=== PATIENT | female | born 1985 | race Caucasian/White ===

== ENCOUNTER 2020-09-07 11:22 | Emergency (ER) | payer MEDICAID ==
[~2020-09-07] VITALS: Ht 149.9 cm; Wt 73.0 kg
[2020-09-07 11:29] VITALS: BP 127/85
== END 2020-09-07 12:32 | disposition home or self-care (01) ==
LOC: ER 11:22
DX: O26.893 Other specified pregnancy related conditions, third trimester (principal); Z3A.39 39 weeks gestation of pregnancy; Z20.822 Contact with and (suspected) exposure to COVID-19; F17.290 Nicotine dependence, other tobacco product, uncomplicated; Z98.890 Other specified postprocedural states
CPT/HCPCS: 87426; 99283

== ENCOUNTER 2020-09-09 07:42 | Inpatient (IN) | payer MEDICAID ==
[~2020-09-09] VITALS: Ht 149.9 cm; Wt 72.6 kg
[2020-09-09] MEDS ORDERED: LACTATED RINGERS 1,000 ML IV SCH (08:15)
[2020-09-09] MEDS ORDERED: DEXT 5%/LR + PITOCIN 20UNITS/L 1,000 ML IV SCH (08:15)
[2020-09-09] MEDS ORDERED: MISOPROSTOL 100MCG TABLET VG SCH (08:15)
[2020-09-09] MEDS ORDERED: METHYLERGONOVINE MALEATE 0.2 MG/ML IM PRN (08:15)
[2020-09-09] MEDS ORDERED: NALOXONE HCL 0.4 MG/ML 1ML VIAL IM PRN (08:15)
[2020-09-09] MEDS ORDERED: CARBOPROST TROMETHAMINE 250 MCG/ML AMPUL IM PRN (08:15)
[2020-09-09] MEDS ORDERED: MISOPROSTOL 100MCG TABLET RC NR (09:15)
[2020-09-09 09:18] LABS: BASOPHILS % 0.5 % (0.0-2.0); EOSINOPHILS % 0.8 % (0.0-5.0); HEMATOCRIT. 31.2 % (36.0-48.0); HEMOGLOBIN. 10.9 g/dL (12.0-16.0); LYMPHOCYTES % 26.1 % (20.0-50.0); MEAN CORPUSCULAR HEMOGLOBIN 33.2 pg (28.0-32.0); MEAN CORPUSCULAR VOLUME 95.4 fL (81.0-99.0); MEAN PLATELET VOLUME 7.1 fl (7.4-10.4); MONOCYTES % 5.9 % (2.0-8.0); NEUTROPHILS % 66.7 % (40.0-76.0); PLATELET 295 x1000/uL (130-400); RED BLOOD CELL COUNT 3.27 mill/uL (4.2-5.4); RED CELL DISTRIBUTION WIDTH 13.8 % (11.6-14.6)
[2020-09-09 09:21] LABS: CLARITY URINE CLEAR (CLEAR); COLOR URINE YELLOW (YELLOW); KETONES URINE NEGATIVE (NEGATIVE); LEUKOCYTE ESTERASE URINE NEGATIVE (NEGATIVE); NITRITE URINE NEGATIVE (NEGATIVE); OCCULT BLOOD URINE NEGATIVE (NEGATIVE); PROTEIN URINE NEGATIVE (NEGATIVE); SPECIFIC GRAVITY URINE 1.009 (1.005-1.030); UROBILINOGEN URINE 0.2 E.U./dL (0.2-1.0)
[2020-09-09 09:28] LABS: INR 0.9; PARTIAL THROMBOPLASTIN TIME 25.5 sec (23.4-31.0); PROTHROMBIN TIME 9.5 sec (9.6-11.0)
[2020-09-09 09:51] LABS: *AMPHETAMINES SCREEN URINE NEGATIVE (NEGATIVE); *BARBITURATES SCREEN URINE NEGATIVE (NEGATIVE); *BENZODIAZEPINES SCREEN URINE NEGATIVE (NEGATIVE); *COCAINE SCREEN URINE NEGATIVE (NEGATIVE); METHADONE URINE SCREEN NEGATIVE (NEGATIVE); OPIATES URINE SCREEN NEGATIVE (NEGATIVE)
[2020-09-09 09:52] LABS: CANNABINOID URINE SCREEN NEGATIVE (NEGATIVE); PHENCYCLIDINE URINE SCREEN NEGATIVE (NEGATIVE)
[2020-09-09] MEDS ORDERED: OXYTOCIN 10 UNITS/ML 1ML ONE (12:48)
[2020-09-09] MEDS ORDERED: CEFAZOLIN SODIUM 1000MG/VIAL ONE (12:48)
[2020-09-09] MEDS ORDERED: MORPHINE SULFATE/PF 1MG/ML 10ML AMP ONE (12:49)
[2020-09-09] MEDS ORDERED: PHENYLEPHRINE HCL 10 MG/ML 1ML (IV VIAL) IV ONE (12:49)
[2020-09-09] MEDS ORDERED: ONDANSETRON HCL 4MG/2ML INJ ONE (12:49)
[2020-09-09] MEDS ORDERED: EPHEDRINE SULFATE 50MG/ML VIAL ONE (12:49)
[2020-09-09] MEDS ORDERED: SUCCINYLCHOLINE CHLORIDE 200MG/10ML IV ONE (12:49)
[2020-09-09 13:02] LABS: HEPATITIS B SURFACE ANTIGEN NEGATIVE
[2020-09-09] MEDS ORDERED: LANOLIN OINT 7GM TUBE TOP PRN (13:30)
[2020-09-09] MEDS ORDERED: IBUPROFEN 400MG TABLET PO PRN (13:30)
[2020-09-09] MEDS ORDERED: DIPHENHYDRAMINE 50MG/ML VIAL IV PRN (13:30)
[2020-09-09] MEDS ORDERED: ONDANSETRON HCL 4MG/2ML INJ IV PRN ×2 (13:30)
[2020-09-09] MEDS ORDERED: HEMORRHOIDAL SUPP PR PRN (13:30)
[2020-09-09] MEDS ORDERED: METOCLOPRAMIDE HCL 10MG/2ML VIAL IV PRN (13:30)
[2020-09-09] MEDS ORDERED: MORPHINE SULFATE 10 MG/ML CPJ IV PRN (13:30)
[2020-09-09] MEDS ORDERED: FENTANYL CITRATE/PF 50MCG/ML 2ML VIAL IV PRN (13:30)
[2020-09-09] MEDS ORDERED: DIPHENHYDRAMINE 25MG CAPSULE PO PRN (13:30)
[2020-09-09] MEDS ORDERED: NALOXONE HCL 0.4 MG/ML 1ML VIAL IV PRN (13:30)
[2020-09-09] MEDS ORDERED: RHO(D) IMMUNE GLOBULIN 300 MCG/SYR IM PRN (13:30)
[2020-09-09] MEDS ORDERED: BISACODYL 10MG SUPP PR PRN (13:30)
[2020-09-09] MEDS: KETOROLAC 30MG/ML VIAL IV SCH (15:55)
[2020-09-09] MEDS: DEXT 5%/LR + PITOCIN 20UNITS/L 1,000 ML IV SCH (15:57)
[2020-09-09 16:30] VITALS: BP 105/53
[2020-09-09 17:00] VITALS: BP 119/56
[2020-09-09 17:56] VITALS: BP 111/52
[2020-09-09 20:00] VITALS: BP 121/73
[2020-09-09] MEDS ORDERED: DOCUSATE SODIUM 100MG CAPSULE PO SCH (21:00)
[2020-09-10] MEDS: DEXT 5%/LR + PITOCIN 20UNITS/L 1,000 ML IV SCH (00:03)
[2020-09-10 00:10] VITALS: BP 100/58
[2020-09-10] MEDS: KETOROLAC 30MG/ML VIAL IV SCH (00:13)
[2020-09-10 07:01] LABS: BASOPHILS % 0.5 % (0.0-2.0); EOSINOPHILS % 0.6 % (0.0-5.0); HEMATOCRIT. 24.6 % (36.0-48.0); HEMOGLOBIN. 8.6 g/dL (12.0-16.0); LYMPHOCYTES % 18.4 % (20.0-50.0); MEAN CORPUSCULAR HEMOGLOBIN 34.3 pg (28.0-32.0); MEAN CORPUSCULAR VOLUME 97.6 fL (81.0-99.0); MONOCYTES % 7.4 % (2.0-8.0); NEUTROPHILS % 73.1 % (40.0-76.0); PLATELET 231 x1000/uL (130-400); RED BLOOD CELL COUNT 2.52 mill/uL (4.2-5.4); RED CELL DISTRIBUTION WIDTH 13.9 % (11.6-14.6)
[2020-09-10 07:30] VITALS: BP 102/65
[2020-09-10] MEDS: IBUPROFEN 800MG TABLET PO PRN ×3 (07:57→21:10)
[2020-09-10] MEDS: PRENATAL VIT/FE FUMARATE/FA TABLET PO SCH (07:57)
[2020-09-10] MEDS: FERROUS SULFATE 325MG TABLET PO SCH (07:57)
[2020-09-10] MEDS: SIMETHICONE 80MG TABLET CHEW PO SCH ×2 (07:58→21:11)
[2020-09-10] MEDS: HYDROCODONE/ACETAMINOPHEN 5/325MG TABLET PO PRN ×2 (12:50→17:12)
[2020-09-10 14:00] VITALS: BP 114/68
[2020-09-10 19:50] VITALS: BP 112/61
[2020-09-10] MEDS: MAGNESIUM/ALUMINUM HYDROXIDE/SIMETHICONE 30ML UDC PO SCH (21:10)
[2020-09-11 04:00] VITALS: BP 111/59
[2020-09-11] MEDS: HYDROCODONE/ACETAMINOPHEN 5/325MG TABLET PO PRN (04:36)
[2020-09-11] MEDS: MAGNESIUM/ALUMINUM HYDROXIDE/SIMETHICONE 30ML UDC PO SCH (07:30)
[2020-09-11] MEDS: FERROUS SULFATE 325MG TABLET PO SCH (07:30)
[2020-09-11] MEDS: SIMETHICONE 80MG TABLET CHEW PO SCH (08:00)
[2020-09-11 08:33] VITALS: BP 126/73
[2020-09-11] MEDS: PRENATAL VIT/FE FUMARATE/FA TABLET PO SCH (09:00)
== END 2020-09-11 11:00 | disposition home or self-care (01) | DRG 540 ==
LOC: 8 EST LDRP 07:42 → OBSVTOIN 07:42 → 8EST 16:00
PROVIDERS: ADMIT Obstetrics & Gynecology; ATTEND Obstetrics & Gynecology
PROC: 10D00Z1 Extraction of Products of Conception, Low, Open Approach (ICD-10-PCS; principal; 2020-09-09)
PROC: 3E0234Z Introduction of Serum, Toxoid and Vaccine into Muscle, Percutaneous Approach (ICD-10-PCS; 2020-09-10)
DX: O34.211 Maternal care for low transverse scar from previous cesarean delivery (principal); Z37.0 Single live birth; Z3A.38 38 weeks gestation of pregnancy; Z67.41 Type O blood, Rh negative
CPT/HCPCS: 36415; 80305; 81003; 85025; 86592; 86703; 86762; 86850; 86886; 86900; 86920; 87340; 88307; 90384; J0330; J0690; J1885; J2274; J2370; J2405; J2590; J3490; A4315